=== PATIENT | female | born 1970 | race Two or more races ===

== ENCOUNTER 2016-06-05 10:25 | Inpatient (IN) | payer MEDICARE ==
[~2016-06-05] VITALS: Ht 152.4 cm; Wt 60.5 kg
[2016-06-05] MEDS ORDERED: SODIUM CHLORIDE 0.9% 1,000 ML IV ONE (11:08)
[2016-06-05] MEDS ORDERED: DENO120V SC (11:35)
[2016-06-05] MEDS ORDERED: [UNRECOGNIZED DRUG - OTHER] PO (11:35)
[2016-06-05] MEDS ORDERED: METF10002 PO (11:35)
[2016-06-05 11:43] LABS: ASPARTATE AMINO TRANSFERASE 383 U/L (15-37); BLOOD UREA NITROGEN 13 mg/dL (7-18)
[2016-06-05 12:09] LABS: HEMOGLOBIN 11.3 g/dL (11.7-16.4)
[2016-06-05 12:11] LABS: DIFF TOTAL CELLS COUNTED 100 CELL DIFF
[2016-06-05 12:13] LABS: VERIFY COUNTS? YES
[2016-06-05 12:16] LABS: ANISOCYTOSIS 2+; POLYCHROMASIA 1+
[2016-06-05 12:18] LABS: MICROCYTOSIS 1+; TARGET CELLS 1+
[2016-06-05 12:19] LABS: POIKILOCYTOSIS 1+
[2016-06-05 12:20] LABS: GIANT PLATELETS 1+
[2016-06-05] MEDS ORDERED: OMNIPAQUE 350 MG/ML, 100ML BOTTLE ONE (12:27)
[2016-06-05] MEDS ORDERED: MORPHINE SULFATE 4 MG/ML, 1ML ONE (15:27)
[2016-06-05] MEDS ORDERED: ONDANSETRON 2MG/ML, 2ML ONE (15:27)
[2016-06-05] MEDS ORDERED: MORPHINE SULFATE 4 MG/ML, 1ML IVPush PRN (16:00)
[2016-06-05] MEDS ORDERED: ONDANSETRON 2MG/ML, 2ML IVPush ONE (16:00)
[2016-06-05] MEDS ORDERED: OXYcodone/APAP 5/325MG TABLET PO PRN (16:30)
[2016-06-05] MEDS ORDERED: ONDANSETRON ODT 4 MG PO PRN (16:30)
[2016-06-05] MEDS ORDERED: BISACODYL 10 MG SUPP PR PRN (16:30)
[2016-06-05] MEDS ORDERED: POLYETHYLENE GLYCOL 17 GM PACKET PO PRN (16:30)
[2016-06-05] MEDS: INSULIN ASPART 100 UNITS/ML, PEN SQ-INSULIN SCH ×2 (16:30→21:00)
[2016-06-05] MEDS ORDERED: ONDANSETRON 2MG/ML, 2ML IVP PRN (16:30)
[2016-06-05] MEDS: FUROSEMIDE 20 MG/2 ML IV SCH (17:41)
[2016-06-05 17:47] VITALS: BP 121/79
[2016-06-05 18:01] VITALS: BP 126/88
[2016-06-05 18:38] VITALS: BP 124/87
[2016-06-05 21:58] VITALS: BP 113/74
[2016-06-05 22:01] VITALS: BP 113/74
[2016-06-06] VITALS (10 sets, daily range): BP systolic 100–135; BP diastolic 63–90
[2016-06-06 05:00] LABS: BLOOD UREA NITROGEN 12 mg/dL (7-18)
[2016-06-06 05:05] LABS: ASPARTATE AMINO TRANSFERASE 357 U/L (15-37)
[2016-06-06 05:21] LABS: HEMOGLOBIN 10.2 g/dL (11.7-16.4)
[2016-06-06 05:23] LABS: DIFF TOTAL CELLS COUNTED 100 CELL DIFF
[2016-06-06 05:26] LABS: ANISOCYTOSIS 2+; LARGE PLATELETS 1+; POIKILOCYTOSIS 1+; POLYCHROMASIA 1+; TARGET CELLS 2+
[2016-06-06 05:29] LABS: VERIFY COUNTS? YES
[2016-06-06] MEDS: INSULIN ASPART 100 UNITS/ML, PEN SQ-INSULIN SCH ×4 (08:24→20:11)
[2016-06-06] MEDS: FUROSEMIDE 20 MG/2 ML IV SCH (08:24)
[2016-06-06] MEDS: SENNA/DOCUSATE TABLET PO SCH (08:24)
[2016-06-06] MEDS: MORPHINE SULFATE 4 MG/ML, 1ML IVPush PRN ×2 (09:14→12:30)
[2016-06-06 12:02] LABS: HEMOGLOBIN 10.3 g/dL (11.7-16.4)
[2016-06-06 12:39] LABS: DIFF TOTAL CELLS COUNTED 100 CELL DIFF
[2016-06-06 12:47] LABS: ANISOCYTOSIS 1+; POIKILOCYTOSIS 1+; POLYCHROMASIA 1+; TARGET CELLS 1+; VERIFY COUNTS? YES
[2016-06-06 12:48] LABS: LARGE PLATELETS 1+
[2016-06-06] MEDS: SPIRONOLACTONE 100 MG TABLET PO SCH (13:22)
[2016-06-07 02:28] VITALS: BP 109/65
[2016-06-07 05:09] LABS: BLOOD UREA NITROGEN 13 mg/dL (7-18)
[2016-06-07] MEDS: INSULIN ASPART 100 UNITS/ML, PEN SQ-INSULIN SCH ×3 (07:00→16:00)
[2016-06-07 07:17] LABS: ANISOCYTOSIS 1+; POLYCHROMASIA 1+
[2016-06-07 07:18] LABS: LARGE PLATELETS 1+; OVALOCYTES 1+; TARGET CELLS 1+
[2016-06-07 07:43] VITALS: BP 102/68
[2016-06-07] MEDS: SENNA/DOCUSATE TABLET PO SCH (09:00)
[2016-06-07] MEDS ORDERED: ACETAMINOPHEN 325 MG TABLET PO PRN (09:00)
[2016-06-07] MEDS ORDERED: FUROSEMIDE 40 MG TABLET PO SCH (09:00)
[2016-06-07] MEDS: SPIRONOLACTONE 100 MG TABLET PO SCH (09:06)
[2016-06-07 14:01] VITALS: BP 99/66
[2016-06-07 14:16] VITALS: BP 106/68
[2016-06-07 14:47] VITALS: BP 114/69
[2016-06-07] MEDS ORDERED: SPIR100T PO (15:16)
[2016-06-07] MEDS ORDERED: FURO40TA6 PO (15:16)
[2016-06-07 15:35] VITALS: BP 108/89
== END 2016-06-07 18:30 | disposition home or self-care (01) | DRG 597 ==
LOC: ED 11:42 → EDIP 16:11 → 3NW 16:53
PROVIDERS: ADMIT Internal Medicine; ATTEND Internal Medicine
PROC: 0W9G3ZZ Drainage of Peritoneal Cavity, Percutaneous Approach (ICD-10-PCS; principal; 2016-06-06)
PROC: 6A551Z2 Pheresis of Platelets, Multiple (ICD-10-PCS; 2016-06-06)
DX: C50.919 Malignant neoplasm of unspecified site of unspecified female breast (principal); E43 Unspecified severe protein-calorie malnutrition; I81 Portal vein thrombosis; C78.7 Secondary malignant neoplasm of liver and intrahepatic bile duct; C79.31 Secondary malignant neoplasm of brain; C79.51 Secondary malignant neoplasm of bone; R18.0 Malignant ascites; E11.9 Type 2 diabetes mellitus without complications; D69.59 Other secondary thrombocytopenia; K59.00 Constipation, unspecified; K80.20 Calculus of gallbladder without cholecystitis without obstruction; T50.905A Adverse effect of unspecified drugs, medicaments and biological substances, initial encounter; K76.9 Liver disease, unspecified; Z90.10 Acquired absence of unspecified breast and nipple; Z83.3 Family history of diabetes mellitus; Z68.26 Body mass index [BMI] 26.0-26.9, adult; Z92.21 Personal history of antineoplastic chemotherapy
CPT/HCPCS: 36415; 49083; 74177; 80048; 80053; 81003; 82040; 82962; 83690; 85025; 85610; 85730; 86850; 86900; 88112; 88305; 96361; 96374; 96375; J2405; Q0162; Q9967; J1940; J7030; P9035